=== PATIENT | female | born 1975 | race Caucasian/White ===

== ENCOUNTER 2022-04-23 08:33 | Outpatient (CLI) | payer SELFPAY ==
--- NOTE | ~2022-04-23 | CT_ITS ---
EXAMINATION: CT LE RT wo con DATE: 04/23/2022 09:08 INDICATION: Right knee pain for preoperative planning TECHNIQUE: High resolution computed tomography (CT) of the right lower limb from the hip through the ankle was performed without intravenous contrast. Additional sagittal and coronal reconstructions wer e performed. Automated exposure control and iterative reconstruction technique were employed. The dos e-length product was 1676.80 mGy-cm. COMPARISON: Radiograph dated 08/24/2021 FINDINGS: Alignment is normal. No fracture. Medial compartment predominant tricompartmental osteoarthritis at t he right knee with small marginal osteophytes in all 3 compartments and eburnation and minimal subart icular cystlike change along the anteromedial aspect of the medial tibial plateau and weightbearing m edial femoral condyle. Additional mild osteoarthritis at the right hip and first metatarsophalangeal joints. No right knee or ankle joint effusion. Soft tissues are unremarkable. Gradient expected posit ion in the retroverted uterus. IMPRESSION: 1. Medial compartment predominant tricompartmental osteoarthritis at the right knee. Reviewed, dictated and finalized at location A. ENTER/LABOR
--- NOTE | 2022-04-23 09:39 | ECG_ITS ---
Measurements Intervals [place] Rate: 49 P: 55 [place]: 186 QRS: -11 QRSD: 105 T: 2 QT: 464 QTc: 421 Interpretive Statements SINUS BRADYCARDIA BORDERLINE T WAVE ABNORMALITY- INFERIOR LEADS BORDERLINE ECG NO PREVIOUS ECG AVAILABLE FOR COMPARISON Electronically Signed On 04-23-2022 10:16:32 TAILER OUT by Juan Sweeney D.O.
[2022-04-23 09:44] LABS: Hematocrit 45.1 % (37.0-47.0); Hemoglobin 15.1 g/dL (12.0-15.0)
[2022-04-23 10:20] LABS: Albumin Level 4.8 g/dL (3.5-5.1); Estimated Glomerular Filt Rate > 60; Glucose 101 mg/dL (65-110)
[2022-04-23 10:21] LABS: Urine Cotinine NEGATIVE
[2022-04-23 10:48] LABS: Hemoglobin A1C 5.4 % (<5.7)
== END 2022-04-23 08:34 | disposition home or self-care (01) ==
PROVIDERS: PCP Pediatrics; Visit Provider Orthopaedic Surgery
DX: M17.11 Unilateral primary osteoarthritis, right knee (principal); I05.9 Rheumatic mitral valve disease, unspecified; R94.31 Abnormal electrocardiogram [ECG] [EKG]
CPT/HCPCS: 73700; 80307; 82040; 82565; 82947; 83036; 85014; 85018; 93005

== ENCOUNTER 2022-07-05 09:51 | Outpatient (CLI) | payer BC, SELFPAY ==
[2022-07-05 11:25] LABS: Basophils Percent Auto 0.3 % (0.2-1.2); Eosinophils Percent Auto 0.3 % (0-4.4); Hematocrit 42.8 % (37.0-47.0); Hemoglobin 14.1 g/dL (12.0-15.0); Immature Granulocyte Absolute 0.02 K/mm3 (0.00-0.031); Immature Granulocyte Percent A 0.3 % (0-0.5); Lymphocytes Absolute Auto 1.43 K/mm3 (0.9-3.2); Lymphocytes Percent Auto 18.4 % (18.3-44.2); Mean Corpuscular HGB Conc 32.9 g/dl (32-36); Mean Corpuscular Hemoglobin 28.3 pg (26-34); Mean Corpuscular Volume 85.8 fl (80-100); Mean Platelet Volume 9.8 fl (7.4-10.4); Monocytes Absolute Auto 0.5 K/mm3 (0.1-0.6); Monocytes Percent Auto 6.7 % (2.6-8.5); Neutrophils Absolute Auto 5.8 K/mm3 (1.3-6.7); Platelet Count Result 262 k/mm3 (150-375); Red Blood Count 4.99 M/mm3 (4.2-5.4); Red Cell Distribution Width 12.3 % (11.5-14.5); White Blood Count 7.8 K/mm3 (4.5-10.0)
[2022-07-05 11:45] LABS: Albumin Level 4.9 g/dL (3.5-5.1); Estimated Glomerular Filt Rate > 60; Glucose 99 mg/dL (65-110)
[2022-07-05 12:14] LABS: Urine Cotinine NEGATIVE
== END 2022-07-05 09:52 | disposition home or self-care (01) ==
LOC: ANHSURGERY 09:54
PROVIDERS: PCP Pediatrics; Visit Provider Orthopaedic Surgery
DX: Z01.812 Encounter for preprocedural laboratory examination (principal); M17.11 Unilateral primary osteoarthritis, right knee
CPT/HCPCS: 80307; 82040; 82565; 82947; 85025; 87081

== ENCOUNTER 2022-07-22 00:59 | Day surgery (SDC) | payer BC, SELFPAY ==
--- NOTE | 2022-07-05 09:47 | PC.NURSE ---
PRE-OP INSTRUCTIONS, PLEASE READ CAREFULLY Report to the Outpatient Waiting Room, entrance under the green pavilion located off [facility], at time _0600_ on date _07/22/22_. Planned Procedure Time: _0730_. PACK A SMALL OVERNIGHT BAG AND LEAVE IN THE CAR ALONG WITH YOUR WALKER Time changes happen often and if your time is changed the preop area will call you the afternoon before. - You and your visitor will be asked to self-screen and do not enter if you have any COVID symptoms. - Only one visitor is requested with a max of two and NO children visitors are allowed at this time. - The patient visitor may be requested to leave or wait in car when not with patient due to distancing restrictions. - A mask is optional within the hospital at this time. -VISITING HOURS 8AM-8PM Patients may have clear liquids (water, carbonated beverages, clear teas, apple juice) until 3 hours prior to surgery (0430 AM) with a maximum of 20 ounces. - No food from midnight until time of surgery Take the following medications with a SIP of water the morning of surgery: _TYLENOL IF NEEDED_ DO NOT STOP ANY OF YOUR OTHER PRESCRIPTION MEDICATIONS PRIOR TO SURGERY ?EXCEPT THE FOLLOWING Medications to discontinue per DR. FARRIS - _IBUPROFEN 7 DAYS PRIOR TO SURGERY, Date to take last dose 07/14/22_ Medications to discontinue per ANESTHESIA - _ALL VITAMINS & SUPPLEMENTS 3 DAYS PRIOR TO SURGERY, Date to take last dose 07/18/22_ Please no make-up, nail georgian, hairspray, perfume, deodorant, or body powder the day of surgery. No jewelry (including any body piercings) or valuables the day of surgery, leave them at home. Please take a shower or bath the night before, or the morning of, surgery with an antibacterial soap. Wear comfortable, loose fitting clothing. Children are encouraged to wear pajamas. - Jewelry must be removed prior to entering the operating room. Rings and piercings that are not removed may be cut off. - The hospital will not accept responsibility for valuables. - Please leave all valuables, including medications, at home the day of surgery. If you are going home after surgery, a licensed route delivery driver must drive you home. - NO public transportation without another adult if you receive anesthesia. - We recommend that an adult stay with you for 24 hours following discharge. - We also recommend that you do not drive, make important decision, drink alcoholic beverages, or take any drugs that were not prescribed by your health care provider for at least 24 hours after your discharge time. Follow any additional instructions given to you from your surgeon. If you or anyone in your household have experienced Covid symptoms in the past week, please notify your surgeon or the nurse liaison at the phone number below for possible testing. Instructions given to _PATIENT & SPOUSE (BHAKTI)_and asked if any additional questions and then verbalized understanding. Patient advised to call surgeon office or pre surgery nurse liaison [phone] if any additional questions.
[2022-07-05 10:15] VITALS: BP 152/94; PULSE 66; RESP 20; TEMP 36.8; O2SAT 98; BMI 31.8
--- NOTE | 2022-07-05 10:20 | PC.NURSE ---
PRE-OP INSTRUCTIONS, PLEASE READ CAREFULLY Report to the Outpatient Waiting Room, entrance under the green pavilion located off [facility], at time _0600_ on date _07/22/22_. Planned Procedure Time: _0730_. Time changes happen often and if your time is changed the preop area will call you the afternoon before. - You and your visitor will be asked to self-screen and do not enter if you have any COVID symptoms. - Only one visitor is requested with a max of two and NO children visitors are allowed at this time. - The patient visitor may be requested to leave or wait in car when not with patient due to distancing restrictions. - A mask is optional within the hospital at this time. -VISITING HOURS 8AM-8PM Patients may have clear liquids (water, carbonated beverages, clear teas, apple juice) until 3 hours prior to surgery (0430 AM) with a maximum of 20 ounces. - No food from midnight until time of surgery Take the following medications with a SIP of water the morning of surgery: _TYLENOL IF NEEDED_ DO NOT STOP ANY OF YOUR OTHER PRESCRIPTION MEDICATIONS PRIOR TO SURGERY ?EXCEPT THE FOLLOWING Medications to discontinue per DR. FARRIS - _IBUPROFEN, ALL VITAMINS & SUPPLEMENTS (PER PATIENT/SPOUSE) 7 DAYS PRIOR TO SURGERY Date to take last dose 07/14/22_ Please no make-up, nail korean, hairspray, perfume, deodorant, or body powder the day of surgery. No jewelry (including any body piercings) or valuables the day of surgery, leave them at home. Please take a shower or bath the night before, or the morning of, surgery with an antibacterial soap. Wear comfortable, loose fitting clothing. Children are encouraged to wear pajamas. - Jewelry must be removed prior to entering the operating room. Rings and piercings that are not removed may be cut off. - The hospital will not accept responsibility for valuables. - Please leave all valuables, including medications, at home the day of surgery. If you are going home after surgery, a licensed grain combine driver must drive you home. - NO public transportation without another adult if you receive anesthesia. - We recommend that an adult stay with you for 24 hours following discharge. - We also recommend that you do not drive, make important decision, drink alcoholic beverages, or take any drugs that were not prescribed by your health care provider for at least 24 hours after your discharge time. Follow any additional instructions given to you from your surgeon. If you or anyone in your household have experienced Covid symptoms in the past week, please notify your surgeon or the nurse liaison at the phone number below for possible testing. Instructions given to _PATIENT & SPOUSE_and asked if any additional questions and then verbalized understanding. Patient advised to call surgeon office or pre surgery nurse liaison [phone] if any additional questions.
[2022-07-22] VITALS (14 sets, daily range): BP systolic 111–177; BP diastolic 60–86; PULSE 51–83; RESP 12–70; TEMP 36.2–37; O2SAT 16–100
--- NOTE | ~2022-07-22 | XR_ITS ---
EXAMINATION: XR_[id number]_CR DATE: 07/22/2022 10:23 CDT INDICATION: Right total knee arthroplasty TECHNIQUE: 2 views right knee FINDINGS: There is a right total knee arthroplasty in expected position. Subcutaneous gas with fluid and air in the joint are consistent with recent surgery. No evidence of periprosthetic fracture. IMPRESSION: 1. Recent right total knee arthroplasty. Reviewed, dictated and finalized at location L.
[2022-07-22] MEDS: ACETAMINOPHEN 500 MG TABLET 1000 MG PO ×2 (06:54→11:47)
--- NOTE | 2022-07-22 07:06 | WPDANESEPPF ---
Anes - Initial Pre Proc Eval Procedure: Operation Date: 07/22/22 07:30 Proposed Procedures p Right Custom Total Knee Arthroplasty - Andrew Mix MD Date/Time: 07/22/22 07:06 Surgeon: Andrew Mix MD Pre Op Diagnosis: primary oa right knee Patient Data Age: 47 Gender: F Height: 1.55 m Weight: 76.3 kg Last Vital Signs Temp 36.8 C 07/05/22 10:15 Pulse 66 07/05/22 10:15 Resp 20 07/05/22 10:15 BP 152/94 H 07/05/22 10:15 Pulse Ox 98 07/05/22 10:15 O2 Del Method Room Air 07/05/22 10:15 Allergies Allergy/AdvReac Type Severity Reaction Status Date / Time Penicillins Allergy Unknown Hives Verified 07/22/22 06:51 Home Medications Medication Instructions Recorded Confirmed Type multivitamin 1 tablet PO DAILY 08/24/21 07/05/22 History 5-HTP 100 mg-magnesium 5 mg-B6 1 tablet PO DAILY 07/05/22 07/22/22 History 1.7 mg-B12 2.4 mcg-inositol ER tablet (Daily Stress Relief) acetaminophen 500 mg tablet 1,000 mg PO Q6H PRN Pain 07/05/22 07/22/22 History ascorbic acid (vitamin C) 1,000 mg 1 g PO DAILY 07/05/22 07/05/22 History capsule cholecalciferol (vitamin D3) 10 10 mcg PO DAILY 07/05/22 07/05/22 History mcg (400 unit) capsule ibuprofen 200 mg capsule 600 mg PO Q6H PRN Pain 07/05/22 07/05/22 History mv-min-vit C-ascorb 1 tablet PO DAILY 07/05/22 07/05/22 History Ib-Lls-Dnc-herb #124 333 mg-1.7 mg chewable tablet (Airborne (ascorbate sodium)) Patient hx anesthesia problems: none Family hx anesthesia problems: none Results Review: All pre-operative results and documents have been reviewed as part of the pre-operative evaluation. ON LICENSE OF [facility] Past Medical History Medical History Mitral valve disorder Family History Family History Mother Family history of arthritis Father Family history of Parkinson's disease Malignant neoplasm of prostate Social History Social History Smoking status: Never smoker Second hand tobacco smoke exposure: No Additional smoking assessment comments: PT DENIES ALL FORMS OF TOBACCO USE Alcohol intake: current Alcohol use details: 1-2 DRINKS/MONTH Substance use: never Substance use type: does not use Lack of Transportation: No Lack of Food: Never True Current Housing: I Have Housing Concerned About Future Housing: No Difficulty Paying Gas/Electric Bills: No Difficulty Paying for Meds: No Currently Unemployed: No Education: High School Diploma/GED Difficulty w/ Childcare or Family Care: No Living arrangements: with family Spiritual care concerns: No Anes - Eval Final PreProcedure Day of Procedure 07/22/22 07:06 Patient weight: obese Heart: regular rate and rhythm Lungs: clear to auscultation Airway: Mallampati scale class II Neurological: alert and oriented Last oral intake: >/= 8 hours ASA classification: II Emergent: no Anesthetic plan: proceed Anesthesia type and monitoring: general LMA and standard monitoring Results Review: All pre-operative results and documents have been reviewed as part of the pre-operative evaluation. Informed Consent: The patient's anesthetic plan and its attendant risks and benefits were discussed with the patient/family/POA. Questions were solicited and answers provided to the satisfaction of the patient/family/POA.
--- NOTE | 2022-07-22 07:10 | WPDHPUPDATE1 ---
History and Physical Update Update Date/Time: 07/22/22 07:10 History and Physical has been reviewed, including an updated exam of the patient. There are NO changes in the patient's condition. Risks, benefits, and alternatives have been discussed and questions answered. Patient agrees to proceed with procedure.
[2022-07-22] MEDS: LACTATED RINGERS 1,000 ML 30 ML IV CONT ×2 (07:25→10:09)
[2022-07-22] MEDS: TRANEXAMIC ACID 1,000MG/ISO100 1,000 MG/100 ML BAG 200 MG IVPB (07:35)
[2022-07-22] MEDS: ceFAZolin 2 GM/D5W 50 ML 2 GM/50 ML BAG IVPB ×2 (07:37→16:38)
--- NOTE | 2022-07-22 07:39 | WPDANESPNB ---
Anes - Peripheral Nerve Block Date/Time: 07/22/22 07:39 I have discussed with the patient/family/POA the placement of a peripheral nerve block for post-operative pain management, including associated risks, benefits, complications, and side effects. Alternative methods of post-operative analgesia were detailed. Questions were solicited and answers provided to the satisfaction of the patient/family/POA. Time-Out: A pre-procedural Time-Out was completed immediately before starting the procedure and confirmed: Patient Identification, Site, Procedure, Patient Position and the Availability of Requisite Equipment. Clinical Indications: Acute post-operative pain management requested by the operative surgeon. Nerve Block Insertion Note Anes-nerve block: adductor canal right Patient position: supine Skin prep: chlorhexidine Needle: 22 gauge, stimulating, insulated echogenic needle. Needle length: 80 mm Technique: ultrasound Injectate: bupivacaine 0.5% with epi 5 mcg/ml (30cc - no epi) Observations: tolerated well Complications: none Procedure start time:: 729 Procedure end time:: 732
[2022-07-22] MEDS: GENTAMICIN BONE CEMENT REFOBACIN 1 EACH TOPICAL (08:27)
[2022-07-22] MEDS: fentaNYL CITRATE INJ (*CRX) 100 MCG/2 ML VIAL 25 MCG IV PUSH ×4 (10:31→10:42)
[2022-07-22] MEDS: SODIUM CHLORIDE 0.9% IV 1,000 ML 125 ML IV CONT (11:47)
--- NOTE | 2022-07-22 12:23 | W.PM.PROC2 ---
Procedure Note - Detailed Date of Procedure 07/22/22 Pre-op Diagnosis primary oa right knee Post-op Diagnosis Same Procedure Performed Total knee arthroplasty, right. Surgeon Andrew Mix MD Internet Salesperson Lalitha Polanco PA-C Anesthesia General and Regional (Subsartorial block.) Findings Notable synovitis and varus disease. Good bone quality. Standard resections according to the preoperative CT planning. Mild medial release. Description of Procedure Preoperative antibiotics were given. The limb was prepped and draped in the usual sterile fashion with a well-padded tourniquet high on the thigh. The limb was exsanguinated and the tourniquet inflated to 300 mmHg. A longitudinal incision was created just medial to the patella. A trivector approach to the knee was performed. Arthrotomy was taken down through the joint capsule. No significant releases were initially taken. The femur was exposed and the F1 jig was applied. The coring tool was used to remove the cartilage for the F2 jig to sit flush with the bone. The jig was pinned and the distal cut carefully taken. Caliper measurements confirmed appropriate bony resections according to the preoperative templated plan. The F4 cutting jig for the femur was applied, at the standard rotation. The AP and anterior chamfer cuts were taken. The F5 jig was applied and the posterior chamfer cuts were taken. The tibia was prepared using the T1 jig, after removing cartilage for the jig contact points. Proper alignment was checked with the alignment gladys. The tibia was cut using the T1u guide. Gap balancing was performed. Gap measurements were taken and the knee was trialed. Excellent alignment and soft tissue balancing was confirmed. The posterior cruciate ligament was recessed along the proximal tibia. The patella was cut for resurfacing. Three lug holes were drilled. Meniscal remnants were removed. The trial components were assembled. Excellent range of motion and proper soft tissue balancing were confirmed throughout the full range of motion. Patellar tracking was excellent. The knee was copiously irrigated periodically throughout the procedure. The real implants were cemented into position. Excess cement was carefully removed. The wound was closed in layers with interrupted #1 Vicryl suture, 2-0 strata fix suture, 0 strata fix suture, 2-0 strata fix suture. Steri-Strips placed on the skin with the knee flexed. Sterile bulky dressing applied. The patient was brought to the recovery room in stable condition. There were no complications. Physician stonecutter assistant, Lalitha Polanco PA-C, required for surgery; including patient positioning, draping, tissue retraction, maintaining instrument position, wound closure, and dressing placement. Implants Conformis Imprint total knee arthroplasty. Cemented. Cruciate retaining. 8mm insert. 32 mm oval patella. Estimated Blood Loss -50.0 Drains No Complications No immediate complications Condition Stable Disposition PACU [facility] Billing Surgery - Charge Forward: Surgery Billing
[2022-07-22] MEDS: oxyCODONE HCL (*CRX) 5 MG TAB IR 10 MG PO ×3 (12:32→20:32)
[2022-07-22] MEDS: SENNA/DOCUSATE SODIUM TABLET 2 TAB PO (16:33)
[2022-07-22] MEDS: ASPIRIN 81 MG ENTERIC TABLET PO (16:34)
[2022-07-22] MEDS: MELOXICAM 7.5 MG TABLET PO (16:34)
[2022-07-22] MEDS: ONDANSETRON INJ 4 MG/2 ML VIAL IV PUSH (17:37)
[2022-07-22] MEDS: FAMOTIDINE 20 MG TABLET PO (20:31)
[2022-07-23] MEDS: oxyCODONE HCL (*CRX) 5 MG TAB IR 10 MG PO ×4 (00:30→13:36)
[2022-07-23] MEDS: ACETAMINOPHEN 500 MG TABLET 1000 MG PO ×3 (00:30→12:30)
[2022-07-23] MEDS: ceFAZolin 2 GM/D5W 50 ML 2 GM/50 ML BAG IVPB ×2 (00:31→08:42)
[2022-07-23 01:16] VITALS: BP 123/61; PULSE 70; RESP 16; TEMP 36.7; O2SAT 100
[2022-07-23 04:45] VITALS: BP 116/59; PULSE 66; RESP 14; TEMP 36.7; O2SAT 100
[2022-07-23 05:57] LABS: Basophils Percent Auto 0.2 % (0.2-1.2); Eosinophils Percent Auto 0.1 % (0-4.4); Hematocrit 33.7 % (37.0-47.0); Immature Granulocyte Absolute 0.07 K/mm3 (0.00-0.031); Immature Granulocyte Percent A 0.6 % (0-0.5); Lymphocytes Absolute Auto 1.82 K/mm3 (0.9-3.2); Mean Corpuscular HGB Conc 32.6 g/dl (32-36); Mean Corpuscular Hemoglobin 29.1 pg (26-34); Mean Corpuscular Volume 89.2 fl (80-100); Mean Platelet Volume 9.9 fl (7.4-10.4); Monocytes Absolute Auto 1.1 K/mm3 (0.1-0.6); Neutrophils Absolute Auto 8.3 K/mm3 (1.3-6.7); Neutrophils Percent Auto 73.1 % (45.5-73.1); Platelet Count Result 188 k/mm3 (150-375); Red Blood Count 3.78 M/mm3 (4.2-5.4); Red Cell Distribution Width 12.4 % (11.5-14.5); White Blood Count 11.4 K/mm3 (4.5-10.0)
[2022-07-23 05:59] LABS: Potassium 3.7 mmol/L (3.4-5.0)
[2022-07-23 06:04] LABS: Anion Gap 4 mmol/L (8-16); Blood Urea Nitrogen 10 mg/dL (7-17); Calcium 8.5 mg/dL (8.4-10.2); Carbon Dioxide 27 mmol/L (22-30); Chloride 106 mmol/L (98-107); Estimated CRCL calculation 92 ml/min; Estimated Glomerular Filt Rate > 60; Glucose 102 mg/dL (65-110); Sodium 137 mmol/L (137-145)
--- NOTE | 2022-07-23 08:10 | PM.DS ---
DS: Admitting Diagnosis Discharge Date 07/23/22 Admitting Diagnosis OA knee Right DS: Discharge Diagnosis Discharge Diagnosis (1) Status post total right knee replacement: Code(s): Z96.651 - Presence of right artificial knee joint Status: Acute Assessment and Plan: Postop day 1: Right total knee arthroplasty. Patient tolerated procedure well. No complications. Pain manageable with pain medication. No numbness or tingling. We had a lengthy discussion regarding postoperative wound care, limitations, expectations, and exercises. Patient shows good understanding. She has had initial physical therapy and is tolerating it well. DVT prophylaxis: 81 mg baby aspirin b.i.d. for 14 days. Pain medication: Percocet. Prednisone. Meloxicam. Patient has followup appointment with Dr. Mix in 3 weeks. DS: Summary Hospital Course Reason for hospitalization: Total knee arthroplasty Hospital Course: Patient tolerated procedure well. Has had initial PT/OT. No complications. Pain well managed. Status at Discharge Functional status at discharge: uses cane/walker Overall status at discharge: patient is progressing back to baseline Time Spent with Patient Time attestation: Total time spent providing and/or coordinating discharge services: Exam Narrative: Overweight 47 y/o female. Resting comfortably in bed. No acute distress. A&O x3. Wearing compression socks bilaterally. Dressing intact with no drainage. Moderate swelling. Small area of ecchymosis. No erythema. No hematoma. Good early range of motion. Calf nontender. Neurologic status intact. No varicosities. Distal pulses palpable. DS: Data Data Completed and Pending Labs on day of discharge: Labs from last 24 hours 07/23/22 07/23/22 07/22/22 05:26 05:26 06:57 WBC 11.4 H RBC 3.78 L Hgb 11.0 L D Hct 33.7 L MCV 89.2 MCH 29.1 MCHC 32.6 RDW 12.4 Plt Count 188 MPV 9.9 Immature Gran % (Auto) 0.6 H Neut % (Auto) 73.1 Lymph % (Auto) 16.0 L [place] % (Auto) 10.0 H Eos % (Auto) 0.1 Baso % (Auto) 0.2 Lymph # (Auto) 1.82 [place] # (Auto) 1.1 H Eos # (Auto) 0.0 Baso # (Auto) 0.0 Abs Immat Gran (auto) 0.07 H Absolute Neuts (auto) 8.3 H Absolute Nucleated RBC 0.0 Nucleated RBC % 0.0 Sodium 137 Potassium 3.7 Chloride 106 Carbon Dioxide 27 Anion Gap 4 L BUN 10 Creatinine 0.60 L Estim Creat Clear Calc 92 Estimated GFR > 60 Glucose 102 Calcium 8.5 Blood Type A Positive Antibody Screen Negative Discharge Plan Discharge Patient Disposition: Home, Self-Care Discharge Instructions: See green instruction sheets Stand Alone Forms: General Discharge Instructions Follow-up/Referrals: Lalitha Polanco PA [Physician Sound Effects Person] - Discharge Medications: New meloxicam 15 mg tablet 15 mg PO DAILY Qty: 30 0RF Rx Instructions: Cut in half. Take 1/2 in morning and 1/2 at night. Take with food. Stop if stomach upset. prednisone 5 mg tablet 5 mg PO DAILY 21 Days Qty: 21 0RF aspirin 81 mg tablet,delayed release (DR/EC) 81 mg PO BID 14 Days Qty: 28 0RF oxycodone-acetaminophen 5-325 mg tablet 1 - 2 tablet PO Q4-6H MDD 6 PRN (Reason: pain) Qty: 30 0RF Continued multivitamin Tablet 1 tablet PO DAILY ascorbic acid (vitamin C) 1,000 mg capsule 1 g PO DAILY Daily Stress Relief 100 mg-5 mg- 1.7 mg-2.4 mcg tablet extended release 1 tablet PO DAILY cholecalciferol (vitamin D3) 10 mcg (400 unit) capsule 10 mcg PO DAILY Airborne (ascorbate sodium) 333-1.7 mg tablet,chewable 1 tablet PO DAILY ibuprofen 200 mg Capsule 600 mg PO Q6H PRN (Reason: Pain) acetaminophen 500 mg Tablet 1,000 mg PO Q6H PRN (Reason: Pain)
[2022-07-23] MEDS: predniSONE 5 MG TABLET PO (08:44)
[2022-07-23 08:45] VITALS: PULSE 66; RESP 14; O2SAT 100
[2022-07-23] MEDS: MELOXICAM 7.5 MG TABLET PO (08:45)
[2022-07-23] MEDS: polyethylene glycoL 3350 17 GM POWD.PACK PO (08:45)
[2022-07-23] MEDS: FAMOTIDINE 20 MG TABLET PO (08:45)
[2022-07-23] MEDS: ASPIRIN 81 MG ENTERIC TABLET PO (08:45)
[2022-07-23] MEDS: SENNA/DOCUSATE SODIUM TABLET 2 TAB PO (08:45)
[2022-07-23] MEDS: ONDANSETRON INJ 4 MG/2 ML VIAL IV PUSH (13:36)
--- NOTE | 2022-07-23 13:36 | P.PNAN_ITS ---
Anes - Prog Note Post-Op Date/Time: 07/23/22 13:36 Cardiovascular status: normal Respiratory status: normal Airway patency: baseline Mental status: baseline Post-Op hydration status: normal Vital Signs: Last Vital Signs Temp 98.0 F 07/23/22 04:45 Pulse 66 07/23/22 08:45 Resp 14 07/23/22 08:45 BP 116/59 L 07/23/22 04:45 Pulse Ox 100 07/23/22 08:45 O2 Del Method Room Air 07/23/22 08:45 O2 Flow Rate 8 07/22/22 10:35 Pain Score (VAS): 4 I/O: Intake & Output 07/22/22 07/23/22 07/23/22 23:59 07:59 15:59 Intake Total 50 50 Balance 50 50 Laboratory Tests 07/23/22 05:26 07/23/22 05:26 07/23/22 07/23/22 05:26 05:26 WBC 11.4 H RBC 3.78 L Hgb 11.0 L D Hct 33.7 L MCV 89.2 MCH 29.1 MCHC 32.6 RDW 12.4 Plt Count 188 MPV 9.9 Immature Gran % (Auto) 0.6 H Neut % (Auto) 73.1 Lymph % (Auto) 16.0 L [place] % (Auto) 10.0 H Eos % (Auto) 0.1 Baso % (Auto) 0.2 Lymph # (Auto) 1.82 [place] # (Auto) 1.1 H Eos # (Auto) 0.0 Baso # (Auto) 0.0 Abs Immat Gran (auto) 0.07 H Absolute Neuts (auto) 8.3 H Absolute Nucleated RBC 0.0 Nucleated RBC % 0.0 Sodium 137 Potassium 3.7 Chloride 106 Carbon Dioxide 27 Anion Gap 4 L BUN 10 Creatinine 0.60 L Estim Creat Clear Calc 92 Estimated GFR > 60 Glucose 102 Calcium 8.5 Post-procedural complaints: nausea and vomiting Patient Feedback: Patient satisfied with anesthetic care.
== END 2022-07-23 15:10 | disposition home or self-care (01) ==
LOC: ANHSURGERY 09:24 → ANH3MED 11:32
PROVIDERS: Physician Assistant Surgical; PCP Pediatrics; Visit Provider Orthopaedic Surgery
PROC: (CPT 27447; principal; 2022-07-22 07:30)
DX: M17.11 Unilateral primary osteoarthritis, right knee (principal); G89.18 Other acute postprocedural pain; E66.9 Obesity, unspecified; Z68.31 Body mass index [BMI] 31.0-31.9, adult
CPT/HCPCS: 27447; 64447; 36415; 73560; 80048; 85025; 86850; 86900; 86901; 97110; 97116; 97162; 97165; 97535; A9270; C1713; C1776; J0171; J0690; J1100; J1170; J1885; J2250; J2270; J2405; J2704; J2795; J3010; J7030; J7120; J7512

== ENCOUNTER 2023-07-22 08:34 | Outpatient (CLI) | payer BC, SELFPAY ==
--- NOTE | ~2023-07-22 | XR_ITS ---
EXAMINATION: XR knee RT 3V DATE: 07/22/2023 08:53 INDICATION: One-year post right knee replacement TECHNIQUE: AP, lateral and sunrise views of the right knee were obtained. COMPARISON: 12/22/2022 FINDINGS: Again seen is a right total knee arthroplasty with patellar resurfacing which appears well seated wit h no periprosthetic lucency to suggest loosening. Interval development of mild lateral patellar tilt and subluxation. Alignment is otherwise normal. No fracture. Soft tissues are unremarkable with no ri ght knee joint effusion. IMPRESSION: 1. Right total knee arthroplasty with patellar resurfacing with interval development of mild lateral patellar tilt and subluxation. 2. No right knee joint effusion or acute osseous abnormality. Reviewed, dictated and finalized at location B. IMPRESSION: 1. Right total knee arthroplasty with patellar resurfacing with interval develo pment of mild lateral patellar tilt and subluxation. 2. No right knee joint effusion or acute osseous abnormality.
== END 2023-07-22 08:35 | disposition home or self-care (01) ==
LOC: ANHIMG 08:35
PROVIDERS: Visit Provider Orthopaedic Surgery
DX: Z96.651 Presence of right artificial knee joint (principal)
CPT/HCPCS: 73562

== ENCOUNTER 2024-02-27 09:50 | Outpatient (CLI) | payer BC, SELFPAY ==
--- NOTE | ~2024-02-27 | XR_ITS ---
XR knee LT min 4V Ordering provider: Andrew Mix MD History: . M25.562 - CHRONIC KNEE PAIN, NO KNOWN INJ . Comparison: None. FINDINGS: BONES: No acute fracture or dislocation. JOINT SPACES: Severe Narrowing of the medial compartment. SOFT TISSUES: Normal. IMPRESSION: No acute osseous abnormality left knee. Severe osteoarthritic changes. Reviewed, dictated and finalized at location A. E SCIENCES DIRECTOR
== END 2024-02-27 09:51 | disposition home or self-care (01) ==
PROVIDERS: Visit Provider Orthopaedic Surgery
DX: M17.12 Unilateral primary osteoarthritis, left knee (principal)
CPT/HCPCS: 73564